=== PATIENT | female | born 1990 | race Caucasian/White ===

== ENCOUNTER 2016-06-25 19:09 | Emergency (ER) | payer OTHER ==
[~2016-06-25 19:09] MED LIST: AMOXICILLIN500 M1 PO; BACLOFEN10 MG PO; BACTRIM DS TABL1 TA1 PO; BACTRIM DS TABL1 TAB PO; CIPRO PO; CLINDAMYCIN HC300 MG PO; DOXYCYCLINE PO; FERROUS GLUCON324 MG PO; FLEXERIL10 MG PO; FLOMAX0.4 MG PO; KEFLEX500 M1 PO; LORTAB 7.5-5001 TAB PO; MACROBID100 MG PO; MUCINEX DM1 TAB.SR . PO; NAPROSYN500 MG PO; NAPROXEN PO; NEURONTIN800 MG PO; NIFEREX-150150 MG PO; NO MEDICATIONS; PHENERGAN DM1 ML DOB; PHENERGAN PO; PREDNISONE PO; PRENATAL VITAMI1 TA3 PO; PROVENTIL5 MG/ML IH; PYRIDIUM PO; SEPTRA SUSPENS100 ML PO; SEROQUEL PO; SEROQUEL50 M1 PO; SUBOXONE 8 MG-1 EAC1 SL; ULTRAM PO; VICODIN 5/1 TAB 5/50 PO; VICODIN 5/500 T1 TAB PO; VOLTAREN50 MG PO; VOLTAREN75 MG PO; ZITHROMAX PO
== END 2016-06-25 19:10 | disposition home or self-care (01) ==
LOC: SED 19:09
DX: T40.1X1A Poisoning by heroin, accidental (unintentional), initial encounter (principal); K21.9 Gastro-esophageal reflux disease without esophagitis; F17.210 Nicotine dependence, cigarettes, uncomplicated; Z79.899 Other long term (current) drug therapy
CPT/HCPCS: 99282

== ENCOUNTER 2016-08-26 18:28 | Emergency (ER) | payer OTHER | END 2016-08-26 18:35 | disposition left against medical advice (07) | LOC: SED 18:28 | DX: R10.9 Unspecified abdominal pain (principal); R30.0 Dysuria; K21.9 Gastro-esophageal reflux disease without esophagitis; F32.9 Major depressive disorder, single episode, unspecified; F17.200 Nicotine dependence, unspecified, uncomplicated; Z98.890 Other specified postprocedural states; Z79.899 Other long term (current) drug therapy | CPT/HCPCS: 99283 ==

== ENCOUNTER 2016-08-26 21:33 | Emergency (ER) | payer OTHER ==
[2016-08-26 21:54] LABS: URINE SOURCE CLEAN CATCH
[2016-08-26 21:57] LABS: URINE BILIRUBIN NEG (NEG); URINE BLOOD NEG (NEG); URINE COLOR YELLOW; URINE GLUCOSE NEG (NORM); URINE KETONE NEG (NEG); URINE LEUKOCYTE ESTERASE NEG (NEG); URINE NITRATE POS (NEG); URINE PROTEIN NEG (NEG); URINE UROBILINOGEN 0.2 MG/DL (NORM)
[2016-08-26 22:02] LABS: MICRO INDICATED? YES; URINE APPEARANCE SL HAZY; URINE RBC 0-2 /[HPF] (0-2)
[2016-08-26 22:03] LABS: CULTURE INDICATED? YES; URINE BACTERIA 2+ (NEG); URINE SQUAMOUS EPITHELIAL CELL MODERATE /[HPF]
== END 2016-08-26 22:40 | disposition home or self-care (01) ==
LOC: SED 21:33
PROVIDERS: Physician Assistant
DX: N30.00 Acute cystitis without hematuria (principal); F17.210 Nicotine dependence, cigarettes, uncomplicated
CPT/HCPCS: 81003; 84703; 87086; 87088; 87186; 99283

== ENCOUNTER 2017-01-03 15:24 | Emergency (ER) | payer OTHER ==
[~2017-01-03] VITALS: Ht 165.1 cm; Wt 59.0 kg
--- NOTE | ~2017-01-03 | CR63 ---
[facility] A Service of [facility] RADIOLOGY TEXT RESULTS PATIENT: CAROLYN BLACKMAN LOCATION: SED : [birth year] UNIT #: [id number] AGE: [address]: Fernando Rhodes MD SEX: F ORDER DR: [id number] [place] [address] [id number] E MR#: [id number] Acc #: [id number] NAME: CAROLYN BLACKMAN : 1990 SEX: F STUDY DATE/TIME: 01/03/2017 15:37 UNIT: SED ROOM: STUDY DESCRIPTION: CR Chest 2 View Attending Physician: Fernando Rhodes M.D. Ordering Physician: Fernando Rhodes M.D. Primary Care Physician: Britton Ortega M.D. MEDICAL IMAGING REPORT This report is preliminary unless electronic signature is present. EXAM PA and lateral chest. HISTORY Fever and coughing up blood for 2 days. COMPARISON 03/29/2015 FINDINGS PA and lateral examination of the chest upright shows a good expansion of the parenchyma with a normal distribution of the pulmonary vascularity. There is no indication of congestion, effusion, infiltrate, tumor, or nodular density. The pleural reflections and diaphragmatic contours are normal. The cardiac silhouette and mediastinal anatomy is within normal limits. IMPRESSION Normal chest. Dictated by... Fernando Garrett M.D. THIS IS AN ELECTRONICALLY VERIFIED REPORT Fernando Garrett M.D. at 01/04/2017 9:50 AM MACY/cheri TD: 01/04/2017 00:12 JOB #: [id number] [facility] A Service of [facility] RADIOLOGY TEXT RESULTS PATIENT: CAROLYN BLACKMAN LOCATION: SED : [birth year] UNIT #: [id number] AGE: [address]: Fernando Rhodes MD SEX: F ORDER DR: MEDICAL IMAGING REPORT Page 1 of 1
== END 2017-01-03 16:54 | disposition home or self-care (01) ==
LOC: SED 15:24
DX: J20.9 Acute bronchitis, unspecified (principal); F17.210 Nicotine dependence, cigarettes, uncomplicated; F31.9 Bipolar disorder, unspecified
CPT/HCPCS: 71020; 94640; 99284; 99460